=== PATIENT | male | born 1985 | race Hispanic/Latino ===

== ENCOUNTER 2018-06-01 13:55 | Emergency (ER) | payer SELFPAY ==
--- NOTE | 2018-06-01 15:46 | ED.PDOC ---
History of Present Illness - General Chief Complaint: Abdominal Pain Stated Complaint: Left testicle pain, low back pain that radiates Time Seen by Provider: 06/01/18 14:57 Source: patient Exam Limitations: no limitations - History of Present Illness Initial Comments: Patient presents with concerns that he is diabetic. He has lost 20 pounds in the last 3-4 months. He says that 3 weeks ago he switched to a vegetarian diet. He thinks that he has polyuria but only for a few hours after a vegetarian meal. He has been more thirsty but does not think that he has had an increased appetite. He has been under a lot of stress in the past few months and says that he occasionally gets stomach discomfort. He was concerned that HIV could be the etiology of his weight loss so he got "tested for STDs and everything was negative". He has had ongoing mid and upper back pain that starts with strenuous activity, especially if repetitive. He also says that his left testicle has been aching for about 2-3 months. No headaches. No other complaints. Timing/Duration: other - 3-4 months Severity: mild Improving Factors: nothing Worsening Factors: nothing Associated Symptoms: other - as in HPI Allergies/Adverse Reactions: Allergies NO KNOWN ALLERGY Allergy (Verified 06/01/18 14:18) Review of Systems - Review of Systems Constitutional: States: see HPI EENTM: States: no symptoms reported Respiratory: States: no symptoms reported Cardiology: States: no symptoms reported Gastrointestinal/Abdominal: States: see HPI Genitourinary: States: see HPI Musculoskeletal: States: see HPI Skin: States: no symptoms reported Neurological: States: no symptoms reported Endocrine: States: see HPI Hematologic/Lymphatic: States: no symptoms reported Past Medical History (General) - Patient Medical History Hx Stroke: No Hx Congestive Heart Failure: No Hx Diabetes: No - Vaccination History Hx Influenza Vaccination: No Hx Pneumococcal Vaccination: No - Social History Hx Tobacco Use: Yes - Quit 2017 Hx Alcohol Use: Yes - Infrequent Hx Substance Use: Yes - Marijuana, quit 04/2018 Family Medical History - Family History Father Living Status: Still Living Hx Family;Other: Grandmother, maternal - lung CA Physical Exam - Physical Exam General Appearance: Alert Eye Exam: bilateral normal Ears, Nose, Throat: normal ENT inspection Neck: non-tender, full range of motion, supple Respiratory: lungs clear, normal breath sounds Cardiovascular/Chest: normal peripheral pulses, regular rate, rhythm, no edema Gastrointestinal/Abdominal: normal bowel sounds, non tender, soft Back Exam: normal inspection, no CVA tenderness Extremity: normal range of motion, non-tender Neurologic: no motor/sensory deficits, normal mood/affect, oriented x 3 Skin Exam: normal color Lymphatic: no adenopathy Progress - Progress Progress: 06/01/18 17:25 Laboratory Tests 06/01/18 06/01/18 06/01/18 14:57 14:57 14:57 WBC 6.1 RBC 4.95 Hgb 15.1 Hct 45.6 MCV 92.1 MCH 30.4 MCHC 33.1 RDW 12.8 Plt Count 245 MPV 10.9 H Absolute Neuts (auto) 3.30 Absolute Lymphs (auto) 2.10 Absolute Monos (auto) 0.40 Absolute Eos (auto) 0.10 Absolute Basos (auto) 0.10 Neutrophils % 55.1 Lymphocytes % 35.5 Monocytes % 6.8 Eosinophils % 1.6 Basophils % 1.0 Normal RBC Morphology Plts harlan adequate Sodium 140 Potassium 4.0 Chloride 102 Carbon Dioxide 27 Anion Gap 15.0 BUN 11 Creatinine 0.76 BUN/Creatinine Ratio 14.5 Random Glucose 103 Hemoglobin A1c 5.8 Serum Osmolality 279.1 Calcium 9.4 Total Bilirubin 0.4 AST 23 ALT 28 Alkaline Phosphatase 64 Serum Total Protein 8.3 H Albumin 5.1 Globulin 3.2 Albumin/Globulin Ratio 1.6 Lipase 37 TSH Thyroxine (T4) Urine Color Urine Appearance Urine pH Ur Specific [place] Urine Protein Urine Glucose (UA) Urine Ketones Urine Blood Urine Nitrite Urine Bilirubin Urine Urobilinogen Ur Leukocyte Esterase Urine RBC Urine WBC Ur Epithelial Cells Urine Bacteria 06/01/18 06/01/18 14:57 15:03 WBC RBC Hgb Hct MCV MCH MCHC RDW Plt Count MPV Absolute Neuts (auto) Absolute Lymphs (auto) Absolute Monos (auto) Absolute Eos (auto) Absolute Basos (auto) Neutrophils % Lymphocytes % Monocytes % Eosinophils % Basophils % Normal RBC Morphology Sodium Potassium Chloride Carbon Dioxide Anion Gap BUN Creatinine BUN/Creatinine Ratio Random Glucose Hemoglobin A1c Serum Osmolality Calcium Total Bilirubin AST ALT Alkaline Phosphatase Serum Total Protein Albumin Globulin Albumin/Globulin Ratio Lipase TSH 1.98 Thyroxine (T4) 8.64 Urine Color Yellow Urine Appearance Clear Urine pH 6.0 Ur Specific [place] 1.010 Urine Protein Negative Urine Glucose (UA) Negative Urine Ketones Negative Urine Blood Negative Urine Nitrite Negative Urine Bilirubin Negative Urine Urobilinogen 0.2 Ur Leukocyte Esterase Negative Urine RBC 0 Urine WBC 0 Ur Epithelial Cells 0 Urine Bacteria 0 No laboratory evidence for the patient's symptoms including the weight loss. He seems to be experiencing stressful events in his life and it may be manifesting as weight loss and back pain. I suggested that the patient add a high calorie protein drink to his diet and plan an enjoyable activity to look forward to in a month or two in order to help relieve any underlying stress or depression. Care instructions given. E.R. warnings given. Questions were elicited and answered. Patient voiced understanding and agreement with the plan Departure - Departure Clinical Impression: Weight loss, non-intentional Disposition: Discharge to Home or Self Care Condition: Good Departure Forms: ED Discharge - Pt. Copy, Patient Portal Self Enrollment Diet: resume usual diet Activity: increase activity as tolerated Additional Instructions: Add a high calorie protein drink to your diet. Make plans for something that you will look forward to doing in one or two months. If your weight loss continues or you would like further evaluation, visit your regular doctor.
--- NOTE | 2018-06-01 16:22 | US ---
EXAM DESCRIPTION: Testicular: Ultrasound. CLINICAL HISTORY: 33 years Male Rule out testicular torsion COMPARISON: None. TECHNIQUE: Transcutaneous scanning ; two-dimensional and Doppler modes. FINDINGS: Dimensions of the right testicle are 5.3 x 2.2 x 2.5 cm, with normal echogenicity and normal color Doppler flow. Epididymal head measures 7.8 x 6.8 x 6.1 mm, with normal echogenicity and normal color Doppler flow. No scrotal wall thickening. No Hydrocele. Dimensions of the left testicle are 5.2 x 2.5 x 3.2 cm, with normal echogenicity and normal color Doppler flow. Epididymal head measures 8.4 x 7.5 x 7.4 mm, with normal echogenicity and normal color Doppler flow. No scrotal wall thickening. Small Hydrocele abutting the epididymis. IMPRESSION: 1. Normal vascularity bilateral testicles and epididymis. Normal echogenicity of the structures. 2. Minimal fluid around the left epididymis. No hydrocele on the right. Normal scrotal wall thickness bilaterally. Electronically signed by: Roldan Hendrickson MD 06/01/2018 4:19 PM [facility]
[2018-06-01 17:39] VITALS: BP 119/66; TEMP 98.1; O2SAT 99
== END 2018-06-01 17:39 | disposition home or self-care (01) ==
LOC: ER 13:55
DX: R63.4 Abnormal weight loss (principal); N50.812 Left testicular pain; M54.6 Pain in thoracic spine; Z87.891 Personal history of nicotine dependence